=== PATIENT | female | born 1955 | race Caucasian/White ===

== ENCOUNTER 2017-07-24 12:36 | Outpatient (CLI) | payer BC ==
[2017-07-24 13:50] LABS: #Basophils 0.1 thou/uL (0.0-0.2); #Eosinphils 0.3 thou/uL (0.0-0.7); #Lymphocytes 3.3 thou/uL (1.20-3.40); #Monocytes 0.8 thou/uL (0.11-0.59); #Neutrophils 4.6 thou/uL (1.40-6.50); %Basophils 1.1 % (0.0-1.0); %Eosinophils 3.1 % (0.0-10.0); %Lymphocytes 36.3 % (21.0-51.0); %Monocytes 8.4 % (0.0-10.0); %Neutrophils 51.2 % (42.0-75.0); Hemoglobin 12.4 g/dL (12.0-16.0); Mean Corpuscular HGB CONC 32.6 g/dL (32.0-36.0); Mean Corpuscular Hemoglobin 30.3 pg (27.0-31.0); Mean Platelet Volume 6.6 fL (7.4-10.4); Platelet Count 373 thou/uL (130-400); Red Blood Cell (RBC) Count 4.09 mill/uL (4.20-5.40)
[2017-07-24 14:11] LABS: ALT (SGPT) 23 U/L (8-55); AST (SGOT) 18 U/L (5-34); Albumin 4.3 g/dL (3.4-4.8); Alkaline Phosphatase 105 U/L (40-150); Anion Gap 15 mmol/L (10-20); BUN (Urea Nitrogen) 18 mg/dL (9.8-20.1); Bilirubin, Total 0.4 mg/dL (0.2-1.2); Calc. Creatinine Clearance 0 mL/min (70-130); Calcium 10.3 mg/dL (7.8-10.44); Carbon Dioxide 29 mmol/L (23-31); Chloride 100 mmol/L (98-107); Estimated GFR-MDRD 81; Globulin 3.2 g/dL (2.4-3.5); Glucose 87 mg/dL (80-115); Potassium 3.8 mmol/L (3.5-5.1); Protein, Total 7.5 g/dL (6.0-8.3); Sodium 140 mmol/L (136-145)
--- NOTE | 2017-07-26 09:17 | EKG ---
Test Reason : Blood Pressure : / mmHG Vent. Rate : 074 BPM Atrial Rate : 074 BPM P-R Int : 140 ms QRS Dur : 086 ms QT Int : 400 ms P-R-T Axes : 057 032 038 degrees QTc Int : 444 ms Normal sinus rhythm Normal ECG No previous ECGs available Confirmed by KAITLYNN DEL VALLE ([id number]) on 07/26/2017 9:17:14 AM Referred By: KRISTINA Confirmed By:KAITLYNN DEL VALLE
== END 2017-07-24 12:37 | disposition home or self-care (01) ==
LOC: LABBT 12:36
PROVIDERS: ATTEND Surgery
DX: Z01.818 Encounter for other preprocedural examination (principal); K64.8 Other hemorrhoids
CPT/HCPCS: 93005; 93010

== ENCOUNTER 2017-07-31 06:42 | Day surgery (SDC) | payer BC ==
[2017-07-24 13:04] VITALS: BMI 24.6
[2017-07-31] MEDS ORDERED: cefOXitin 2 GM, Syringe 1 ML in Sterile Water 10 ML SLOW IVP SCH (07:45)
[2017-07-31] MEDS ORDERED: Bacitracin Zinc Ointment 30 gm TUBE ONE (08:37)
[2017-07-31] MEDS ORDERED: Bupivacaine 0.25% HCL 30 ML VIAL ONE (08:37)
[2017-07-31] MEDS ORDERED: Lidocaine 2% w/Epinephrine 1:200K 20 ML VIAL ONE (08:37)
[2017-07-31] MEDS ORDERED: Fentanyl 100 MCG/2 ML VIAL ONE (08:38)
[2017-07-31] MEDS ORDERED: Midazolam HCl 2 mg/2 ml Vial ONE (08:38)
--- NOTE | 2017-07-31 10:32 | OP ---
PREOPERATIVE DIAGNOSIS: Bleeding hemorrhoids. SURGEON: Shahzad Agrawal M.D. PROCEDURE PERFORMED: PPH stapled hemorrhoidectomy. INDICATIONS: This is a 62-year-old female who has had prolapsing hemorrhoids and bleeding, not respo nsive to medical therapy. FINDINGS: Grade III hemorrhoids. PROCEDURE IN DETAIL: After informed consent was obtained, the patient was taken to the operating hector m. She had undergone a mechanical bowel prep at home. She was given general endotracheal anesthesia , and then placed in the prone jackknife position. Perianal region was prepped and draped in the usu al fashion. Local anesthesia infiltrated subcutaneously and deep as a four quadrant anal block. The introducer retractor was inserted and sutured in place with interrupted 0 silk sutures. Then the lopez ture guide was inserted and a pursestring of 2-0 Prolene was placed circumferentially in the rectal m ucosa. The stapler was inserted with the anvil distal or proximal to the pursestring. A knot was ti ed in the Prolene to close the pursestring around the shaft on the stapler. While held closed, the s tapler was closed and fired, held for 30 seconds, then released for 30 seconds, and then removed. Th e specimen was inspected. There were no muscle fibers and sent to pathology for further analysis. H emostasis was achieved by placing 2 interrupted [id number] of 3-0 chromic. The wound was thoro ughly irrigated. Hemostasis assured. Gelfoam inserted within the anal canal. Sterile bandage appli ed. The patient tolerated the procedure well and transferred to recovery in good condition. Sponge and needle count verified correct x2.
[2017-07-31] MEDS ORDERED: HYDROcodone/Acetaminophen 5/325 mg Tablet ONE (11:14)
[2017-07-31] MEDS ORDERED: PROPOFOL 200 MG/20 ML VIAL ONE (16:18)
[2017-07-31] MEDS ORDERED: Glycopyrrolate 0.2 MG/ML 5 ML SYRINGE ONE (16:18)
[2017-07-31] MEDS ORDERED: Ondansetron HCl/PF 4 MG/2 ML Vial ONE (16:18)
[2017-07-31] MEDS ORDERED: Lidocaine 1% PF 5 ML VIAL ONE (16:18)
[2017-07-31] MEDS ORDERED: Dexamethasone 20 MG/5 ML VIAL ONE (16:18)
== END 2017-07-31 11:50 | disposition home or self-care (01) ==
LOC: SDC 06:42
PROVIDERS: ATTEND Surgery
PROC: 06BY3ZC Excision of Hemorrhoidal Plexus, Percutaneous Approach (ICD-10-PCS; principal; 2017-07-31)
DX: K64.2 Third degree hemorrhoids (principal); I10 Essential (primary) hypertension; E78.5 Hyperlipidemia, unspecified; F41.9 Anxiety disorder, unspecified; Z87.891 Personal history of nicotine dependence; Z79.899 Other long term (current) drug therapy; Z82.3 Family history of stroke; Z83.3 Family history of diabetes mellitus; Z90.710 Acquired absence of both cervix and uterus; Z98.890 Other specified postprocedural states
CPT/HCPCS: 88304; A4216; J0694; J1100; J2001; J2250; J2405; J2704; J3010; S0020